=== PATIENT | female | born 1970 | race Caucasian/White ===

== ENCOUNTER 2025-03-06 08:23 | Outpatient (AMB) | payer OTHER, SELFPAY ==
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
== END 2025-03-06 08:43 | disposition home or self-care (01) ==
LOC: HO.HSM 08:23
PROVIDERS: PCP Nurse Practitioner Family; Visit Provider Psychiatry & Neurology Neurology
DX: I63.9 Cerebral infarction, unspecified (principal); G43.009 Migraine without aura, not intractable, without status migrainosus; F41.9 Anxiety disorder, unspecified; I67.2 Cerebral atherosclerosis; G47.33 Obstructive sleep apnea (adult) (pediatric)
CPT/HCPCS: 99214